=== PATIENT | female | born 1965 | race Caucasian/White ===

== ENCOUNTER → 2020-10-09 | Outpatient (CLI) | payer SELFPAY ==
[2020-10-09 13:52] LABS: Source, Urine Clean Catch
[2020-10-09 16:49] LABS: Bacteria Few /hpf; Calcium Oxalate Crystals Many /hpf; Red Blood Cells, Urine Not Seen /hpf (0-2); Squamous Epithelial Cells Few /hpf (Few); White Blood Cells, Urine Not Seen /hpf (0-5)
== END | disposition home or self-care (01) ==
LOC: LAB SHORT 12:15
PROVIDERS: Nurse Practitioner
DX: R39.89 Other symptoms and signs involving the genitourinary system (principal)
CPT/HCPCS: 81015; 87086